=== PATIENT | male | born 1990 | race Hispanic/Latino ===

== ENCOUNTER 2016-12-26 05:24 | Emergency (ER) | payer SELFPAY ==
[2016-12-26 07:29] LABS: Alanine Aminotransferase 11 units/L (7-56); Albumin 3.9 g/dL (3.9-5); Albumin/Globulin Ratio 1.6 %; Alkaline Phosphatase 81 units/L (35-129); Anion Gap 18 mmol/L; Bilirubin,Total 0.5 mg/dL (0.1-1.2); Blood Urea Nitrogen 9 mg/dL (9-20); Calcium 8.2 mg/dL (8.4-10.2); Carbon Dioxide 24 mmol/L (22-30); Chloride 105.4 mmol/L (98-107); Glucose 102 mg/dL (75-100); Potassium 4.5 mmol/L (3.6-5.0); Sodium 143 mmol/L (137-145); Total Protein 6.3 g/dL (6.3-8.2)
[2016-12-26 07:42] LABS: Basophils % (Auto) 0.5 % (0.0-1.8); Eosinophils % (Auto) 0.2 % (0.0-4.3); Hematocrit 43.9 % (35.5-45.6); Hemoglobin 14.9 gm/dl (11.8-15.2); Mean Corpuscular HGB Conc 34 % (32-34); Mean Corpuscular Hemoglobin 34 pg (28-32); Mean Corpuscular Volume 99 fl (84-94); Platelet Count 174 K/mm3 (140-440); Red Blood Count 4.44 M/mm3 (3.65-5.03); Red Cell Distribution Width 12.3 % (13.2-15.2); White Blood Count 6.9 K/mm3 (4.5-11.0)
--- NOTE | 2016-12-26 08:13 | Emergency Department Report ---
ED Psych HPI - General Chief Complaint: Psych Stated Complaint: ALIYAH AZEVEDO Time Seen by Provider: 12/26/16 08:12 Source: police Mode of arrival: Ambulatory - History of Present Illness Initial Comments: Patient states that he lost control due to excessive alcohol and "problems with my shawty" or "more than one of them". It appears that the patient has had mental health issues for many years. He has had incarceration is in the past. He has been told that he should be taking medication but has never been either prescribed this or compliant with a prescription. He states he was not on medication in half-way. He denies any specific mental health history. He denies a history of methamphetamine or cocaine abuse. He did admit to marijuana use. He states that he was not trying to kill himself. He describes this behavior as impulsive. The lacerations are superficial. He has no ongoing suicidal ideation. The patient states his tetanus toxoid status is up-to-date. MD Complaint: other (states impulsive behavior) -: minutes(s) Associated Psychiatric Symptoms: none History of same: No Quality: resolved prior to arrival Improves With: none Worsens With: none Context: recent alcohol abuse Associated Symptoms: denies other symptoms Treatments Prior to Arrival: none If Self Harm: other - Related Data Home Medications Medication Instructions Recorded Confirmed Last Taken No Known Home Medications [No 12/26/16 12/26/16 Unknown Reported Home Medications] Allergies Allergy/AdvReac Type Severity Reaction Status Date / Time No Known Allergies Allergy Unverified 12/26/16 06:21 ED Review of Systems ROS: Stated complaint: ALIYAH EVAL Other details as noted in HPI Constitutional: denies: chills, fever Eyes: denies: eye pain, eye discharge, vision change ENT: denies: ear pain, throat pain Respiratory: denies: cough, shortness of breath, wheezing Cardiovascular: denies: chest pain, palpitations Endocrine: no symptoms reported Gastrointestinal: denies: abdominal pain, nausea, diarrhea Genitourinary: denies: urgency, dysuria Musculoskeletal: denies: back pain, joint swelling, arthralgia Skin: denies: rash, lesions Neurological: denies: headache, weakness, paresthesias Psychiatric: depression. denies: anxiety Hematological/Lymphatic: denies: easy bleeding, easy bruising ED Past Medical Hx - Past Medical History Previous Medical History?: No - Surgical History Past Surgical History?: No - Social History Smoking Status: Current Every Day Smoker Substance Use Type: Alcohol - Medications Home Medications: Home Medications Medication Instructions Recorded Confirmed Last Taken Type No Known Home Medications [No 12/26/16 12/26/16 Unknown History Reported Home Medications] ED Physical Exam - General Limitations: No Limitations General appearance: alert, in no apparent distress - Head Head exam: Present: atraumatic, normocephalic - Eye Eye exam: Present: normal appearance. Absent: scleral icterus - ENT ENT exam: Present: normal exam, mucous membranes moist - Neck Neck exam: Present: normal inspection - Respiratory Respiratory exam: Present: normal lung sounds bilaterally. Absent: respiratory distress - Cardiovascular Cardiovascular Exam: Present: regular rate, normal rhythm. Absent: systolic murmur, diastolic murmur, rubs, gallop - GI/Abdominal GI/Abdominal exam: Present: soft, normal bowel sounds. Absent: distended, tenderness, guarding, rebound, rigid - Rectal Rectal exam: Present: deferred - Extremities Exam Extremities exam: Present: normal inspection - Back Exam Back exam: Present: normal inspection - Neurological Exam Neurological exam: Present: alert, oriented X3, CN II-XII intact. Absent: motor sensory deficit - Psychiatric Psychiatric exam: Present: normal affect, normal mood - Skin Skin exam: Present: warm, dry, intact, normal color. Absent: rash ED Course Vital Signs 12/26/16 12/26/16 12/26/16 06:07 06:14 06:22 Temperature 97.9 F 97.9 F Pulse Rate 89 89 Respiratory 20 20 Rate Blood Pressure 111/62 Blood Pressure 111/62 [Right] O2 Sat by Pulse 97 97 97 Oximetry - Reevaluation(s) Reevaluation #1: Discussed with mental health counselor. We agreed that the patient's behavior appears to be more impulsive rather than a true suicidal gesture. We have executed a temporary 1013 pending evaluation with the psychiatrist when they make rounds this afternoon. The final disposition will be per psychiatry. 12/26/16 16:18 ED Medical Decision Making - Lab Data Result diagrams: 12/26/16 06:58 12/26/16 06:58 Laboratory Results - last 24 hr 12/26/16 12/26/16 12/26/16 06:58 06:58 06:58 WBC 6.9 RBC 4.44 Hgb 14.9 Hct 43.9 MCV 99 H MCH 34 H MCHC 34 RDW 12.3 L Plt Count 174 Lymph % (Auto) 42.3 H Tucker % (Auto) 6.8 Eos % (Auto) 0.2 Baso % (Auto) 0.5 Lymph # 2.9 Tucker # 0.5 Eos # 0.0 Baso # 0.0 Seg Neutrophils % 50.2 Seg Neutrophils # 3.5 Sodium 143 Potassium 4.5 Chloride 105.4 Carbon Dioxide 24 Anion Gap 18 BUN 9 Creatinine 0.9 Estimated GFR > 60 BUN/Creatinine Ratio 10.00 Glucose 102 H Calcium 8.2 L Total Bilirubin 0.5 AST 12 ALT 11 Alkaline Phosphatase 81 Total Protein 6.3 Albumin 3.9 Albumin/Globulin Ratio 1.6 Plasma/Serum Alcohol 0.21 H Laboratory Results - last 24 hr 12/26/16 12/26/16 12/26/16 06:58 06:58 06:58 WBC 6.9 RBC 4.44 Hgb 14.9 Hct 43.9 MCV 99 H MCH 34 H MCHC 34 RDW 12.3 L Plt Count 174 Lymph % (Auto) 42.3 H Tucker % (Auto) 6.8 Eos % (Auto) 0.2 Baso % (Auto) 0.5 Lymph # 2.9 Tucker # 0.5 Eos # 0.0 Baso # 0.0 Seg Neutrophils % 50.2 Seg Neutrophils # 3.5 Sodium 143 Potassium 4.5 Chloride 105.4 Carbon Dioxide 24 Anion Gap 18 BUN 9 Creatinine 0.9 Estimated GFR > 60 BUN/Creatinine Ratio 10.00 Glucose 102 H Calcium 8.2 L Total Bilirubin 0.5 AST 12 ALT 11 Alkaline Phosphatase 81 Total Protein 6.3 Albumin 3.9 Albumin/Globulin Ratio 1.6 Urine Color Urine Turbidity Urine pH Ur Specific Jennings Urine Protein Urine Glucose (UA) Urine Ketones Urine Blood Urine Nitrite Urine Bilirubin Urine Urobilinogen Ur Leukocyte Esterase Urine WBC (Auto) Urine RBC (Auto) Urine Mucus Plasma/Serum Alcohol 0.21 H 12/26/16 Unknown WBC RBC Hgb Hct MCV MCH MCHC RDW Plt Count Lymph % (Auto) Tucker % (Auto) Eos % (Auto) Baso % (Auto) Lymph # Tucker # Eos # Baso # Seg Neutrophils % Seg Neutrophils # Sodium Potassium Chloride Carbon Dioxide Anion Gap BUN Creatinine Estimated GFR BUN/Creatinine Ratio Glucose Calcium Total Bilirubin AST ALT Alkaline Phosphatase Total Protein Albumin Albumin/Globulin Ratio Urine Color Yellow Urine Turbidity Clear Urine pH 5.0 Ur Specific Jennings 1.024 Urine Protein <15 mg/dl Urine Glucose (UA) Neg Urine Ketones Neg Urine Blood Neg Urine Nitrite Neg Urine Bilirubin Neg Urine Urobilinogen 2.0 Ur Leukocyte Esterase Neg Urine WBC (Auto) 1.0 Urine RBC (Auto) 2.0 Urine Mucus Few Plasma/Serum Alcohol Laboratory Results - last 24 hr 12/26/16 12/26/16 12/26/16 06:58 06:58 06:58 WBC 6.9 RBC 4.44 Hgb 14.9 Hct 43.9 MCV 99 H MCH 34 H MCHC 34 RDW 12.3 L Plt Count 174 Lymph % (Auto) 42.3 H Tucker % (Auto) 6.8 Eos % (Auto) 0.2 Baso % (Auto) 0.5 Lymph # 2.9 Tucker # 0.5 Eos # 0.0 Baso # 0.0 Seg Neutrophils % 50.2 Seg Neutrophils # 3.5 Sodium 143 Potassium 4.5 Chloride 105.4 Carbon Dioxide 24 Anion Gap 18 BUN 9 Creatinine 0.9 Estimated GFR > 60 BUN/Creatinine Ratio 10.00 Glucose 102 H Calcium 8.2 L Total Bilirubin 0.5 AST 12 ALT 11 Alkaline Phosphatase 81 Total Protein 6.3 Albumin 3.9 Albumin/Globulin Ratio 1.6 Urine Color Urine Turbidity Urine pH Ur Specific Jennings Urine Protein Urine Glucose (UA) Urine Ketones Urine Blood Urine Nitrite Urine Bilirubin Urine Urobilinogen Ur Leukocyte Esterase Urine WBC (Auto) Urine RBC (Auto) Urine Mucus Urine Opiates Screen Urine Methadone Screen Ur Barbiturates Screen Ur Phencyclidine Scrn Ur Amphetamines Screen U Benzodiazepines Scrn Urine Cocaine Screen U Marijuana (THC) Screen Drugs of Abuse Note Plasma/Serum Alcohol 0.21 H 12/26/16 12/26/16 Unknown Unknown WBC RBC Hgb Hct MCV MCH MCHC RDW Plt Count Lymph % (Auto) Tucker % (Auto) Eos % (Auto) Baso % (Auto) Lymph # Tucker # Eos # Baso # Seg Neutrophils % Seg Neutrophils # Sodium Potassium Chloride Carbon Dioxide Anion Gap BUN Creatinine Estimated GFR BUN/Creatinine Ratio Glucose Calcium Total Bilirubin AST ALT Alkaline Phosphatase Total Protein Albumin Albumin/Globulin Ratio Urine Color Yellow Urine Turbidity Clear Urine pH 5.0 Ur Specific Jennings 1.024 Urine Protein <15 mg/dl Urine Glucose (UA) Neg Urine Ketones Neg Urine Blood Neg Urine Nitrite Neg Urine Bilirubin Neg Urine Urobilinogen 2.0 Ur Leukocyte Esterase Neg Urine WBC (Auto) 1.0 Urine RBC (Auto) 2.0 Urine Mucus Few Urine Opiates Screen Presumptive negative Urine Methadone Screen Presumptive negative Ur Barbiturates Screen Presumptive negative Ur Phencyclidine Scrn Presumptive negative Ur Amphetamines Screen Presumptive negative U Benzodiazepines Scrn Presumptive negative Urine Cocaine Screen Presumptive negative U Marijuana (THC) Screen Presumptive positive Drugs of Abuse Note Disclamer Plasma/Serum Alcohol Critical care attestation.: If time is entered above; I have spent that time in minutes in the direct care of this critically ill patient, excluding procedure time. ED Disposition Clinical Impression: History of impulsive behavior Alcohol intoxication Qualifiers: Complication of substance-induced condition: uncomplicated Qualified Code(s): F10.120 - Alcohol abuse with intoxication, uncomplicated Forehead abrasion Qualifiers: Encounter type: initial encounter Qualified Code(s): S00.81XA - Abrasion of other part of head, initial encounter Disposition: DISCHARGED TO HOME OR SELFCARE Is pt being admited?: No Does the pt Need Aspirin: No Condition: Stable Instructions: Abuse of Alcohol (ED), Abrasion (ED) Referrals: PRIMARY CARE, [Primary Care Provider] - 3-5 Days
[2016-12-26 08:32] LABS: Urine Drugs of Abuse Note Disclamer
[2016-12-26 08:50] LABS: Bilirubin,Urine NEG (Negative); Blood,Urine NEG (Negative); Ketones,Urine NEG (Negative); Leukocyte Esterase,Urine NEG (Negative); Mucus,Urine FEW /HPF; Nitrite,Urine NEG (Negative); Protein,Urine <15 mg/dL mg/dL (Negative)
--- NOTE | 2016-12-26 14:02 | Consultation ---
History of Present Illness - Reason for Consult Consult date: 12/26/16 Reason for consult: psychiatric evaluation - Chief Complaint Chief complaint: "I got drunk and was doing dumb stuff" Osmany is a 26-year-old white male who presented to the emergency department after harming himself while intoxicated. He reports drinking an excessive amount of alcohol, unknown amount, and cut his for head and his chest. He believes this event was triggered by an argument with his girlfriend. He denies previous depression or psychotic symptoms. He reports using marijuana "every once in a while." He denies use of methamphetamine, opiates, benzodiazepines, or any other drugs. He has a history of legal charges which are nonviolent. He states there schulz charges and also one for disorderly conduct. He reports many of these arrests occurred while he was under the influence of alcohol. He reports drinking socially and denies symptoms of withdrawal currently or previously. He reports drinking approximately every other day in the evening. He cannot specify an amount. He is currently employed at [employer]. He does not know family history because he was adopted. Medications and Allergies Allergies Allergy/AdvReac Type Severity Reaction Status Date / Time No Known Allergies Allergy Unverified 12/26/16 06:21 Home Medications Medication Instructions Recorded Confirmed Last Taken Type No Known Home Medications [No 12/26/16 12/26/16 Unknown History Reported Home Medications] Past psychiatric history - Past Medical History Past Medical History: No medical history Past Surgical History: No surgical history - past Psychiatric treatment and history psychiatric treatment history: No previous suicide attempts - Social History Social history: single (lives with girlfriend), smoking (1 pack per day), alcohol abuse, other (has 3 children. He is not the alf parent) Mental Status Exam - Vital signs Last Vital Signs Temp 97.9 F 12/26/16 06:14 Pulse 89 12/26/16 06:14 Resp 20 12/26/16 06:22 BP 111/62 12/26/16 06:14 Pulse Ox 97 12/26/16 06:22 - Exam Orientation: time, place, person Affect: normal Mood: other (irritable) Thought content: other (no SI or HI) Thought Process: Intact Perceptions: none Speech: normal rate and pattern Concentration: focused Motor activity: normal Level of consciousness: alert Memory: Intact Sleep Symptoms: None Interaction: cooperative Results Result Diagrams: 12/26/16 06:58 12/26/16 06:58 Abnormal lab results 12/26/16 12/26/16 12/26/16 Range/Units 06:58 06:58 06:58 MCV 99 H (84-94) fl MCH 34 H (28-32) pg RDW 12.3 L (13.2-15.2) % Lymph % (Auto) 42.3 H (13.4-35.0) % Glucose 102 H (75-100) mg/dL Calcium 8.2 L (8.4-10.2) mg/dL Plasma/Serum Alcohol 0.21 H (0-0.07) gm% All other labs normal. Assessment and Plan Assessment and plan: Impression: Alcohol use disorder, rule out dependence He likes insights into the frequency or severity of his use as well as its consequence. While he denies depression, there is concern that he harmed himself. Plan: Monitor for withdrawal from alcohol [facility] protocol, monitoring only 1013 and transfer to inpatient psychiatric facility - Psychiatric problem (1) Alcohol use disorder Current Visit: Yes Status: Acute
--- NOTE | 2016-12-27 11:14 | Progress Note ---
Subjective - Reason for Consult Consult date: 12/27/16 Reason for consult: Psychiatry Folllow-up - Chief Complaint Chief complaint: "I did a stupid thing" Osmany is a 26-year-old white male who presented to the emergency department after harming himself while intoxicated. He reports drinking an excessive amount of alcohol, unknown amount, and cut his for head and his chest. Today patient was calm and cooperative but fixed on being "stupid for I did." He does not seem to severity of his actions at this time, stating, "I just got into with my girl." He feels that his girlfriend was playing mind games with him, so he decided to cut himself to get her attention. He admits that he had been drinking before this occurrence. He stated, 'I don't have a drinking problem." He could not tell me how often he drinks. He denies needing a drink in the AM, denies feeling guilty about drinking, he does get annoyed when his girlfriend talk to him about excessive drinking ,and he denies that he may need to cut down on his drinking (CAGE 1). He is concern about his job ([employer]). He has a wound on his left FA from a burn (accidental at work), per the patient. He denies SI/HI's and AVH's. He denies recreational drug use but he is positive for marijuana. He denies feeling depressed or anxious. Mental Status Exam - Vital signs Last Vital Signs Temp 97.5 F L 12/27/16 10:45 Pulse 56 L 12/27/16 10:45 Resp 18 12/27/16 10:45 BP 121/76 12/27/16 10:45 Pulse Ox 98 12/27/16 10:45 - Exam Narrative exam: MSE: Appearance: cooperative Behavior: poor eye contact Speech: regular rate and tone Mood: "Just mad at the situation" Affect: flat Thought Process: organized and fixed Thought Content: denies SI/HI's and AVH's Cognition: A/O x4 Motor Activity: ambulatory Insight: poor Judgment: poor Assessment and Plan Impression: Alcohol use disorder. He likes insights into the frequency or severity of his use as well as its consequence. Osmany is a 26-year-old white male who presented to the emergency department after harming himself while intoxicated. He reports drinking an excessive amount of alcohol, unknown amount , and cut his for head and his chest. Today patient was calm and cooperative but fixed on being "stupid for I did." He does not seem to severity of his actions at this time, stating, "I just got into with my girl." He denies needing a drink in the AM, denies feeling guilty about drinking, he does get annoyed when his girlfriend talk to him about excessive drinking ,and he denies that he may need to cut down on his drinking (CAGE 1). He currently lives with the girlfriend, he states that his parents are . He denies recreational drug use but he is positive for marijuana. Alcohol 0.21. Recommendation/Plan: Continue 1013 with possible placement to inpatient psy services or outpatient for sunstance and alcohol abuse. Monitor for withdrawal from alcohol, none noted. Will reassess in the AM.
--- NOTE | 2016-12-28 12:20 | Progress Note ---
Subjective - Reason for Consult Consult date: 12/28/16 Reason for consult: psychiatric follow up - Chief Complaint Chief complaint: "I feel better" Osmany is a 26-year-old white male who presented to the emergency department after harming himself while intoxicated. He reports drinking an excessive amount of alcohol, unknown amount, and cut his for head and his chest. Patient has been calm and cooperative. He denies SI/HI/AVH. He discussed the negative consequences of his alcohol use. He is interested in outpatient programs to learn about alcoholism. He has the support of his girlfriend per his report. No signs of withdrawal observed or reported. He is concerned about his job ( [employer]). He has a wound on his left FA from a burn (accidental at work), per the patient. He denies feeling depressed or anxious. Mental Status Exam - Vital signs Last Vital Signs Temp 98.3 F 12/28/16 08:07 Pulse 63 12/28/16 08:07 Resp 16 12/28/16 08:07 BP 111/73 12/28/16 08:07 Pulse Ox 100 12/28/16 08:07 - Exam Orientation: time, place, person Affect: normal Mood: appropriate Thought content: other (no si/no hi) Thought Process: Intact Perceptions: none Speech: normal rate and pattern Concentration: focused Motor activity: normal Level of consciousness: alert Memory: Intact Sleep Symptoms: None Interaction: cooperative Assessment and Plan Impression: Alcohol use disorder. He likes insights into the frequency or severity of his use as well as its consequence. Osmany is a 26-year-old white male who presented to the emergency department after harming himself while intoxicated. He reports drinking an excessive amount of alcohol, unknown amount , and cut his for head and his chest. He denies recreational drug use (does not believe marijuana is a drug) but he is positive for marijuana. Alcohol 0.21 at time of admission to ER. Recommendation/Plan: Continue 1013 with possible placement to inpatient psy services or outpatient for substance and alcohol abuse. Monitor for withdrawal from alcohol, none noted. Will reassess in the AM. - Patient Problems (1) Alcohol use disorder Current Visit: Yes Status: Acute
[2016-12-29 09:13] VITALS: BP 111/69
--- NOTE | 2016-12-29 09:35 | Progress Note ---
Subjective - Reason for Consult Consult date: 12/29/16 Reason for consult: Psychiatry Follow-up - Chief Complaint Chief complaint: "I feel better" Osmany is a 26-year-old white male who presented to the emergency department after harming himself while intoxicated. He reports drinking an excessive amount of alcohol, unknown amount, and cut his for head and his chest. Patient has been calm and cooperative. Today patient is calm, cooperative with a linear thought process. He stated that he made a bad choice by being impulsive when he cut his forehead and chest. (superficial wounds). He denies SI/Hi's and AVH's. He denies feeling depressed or anxious. Mental Status Exam - Vital signs Last Vital Signs Temp 97.8 F 12/29/16 09:12 Pulse 67 12/29/16 09:12 Resp 16 12/29/16 09:12 BP 111/69 12/29/16 09:12 Pulse Ox 98 12/29/16 09:12 - Exam Narrative exam: MSE: Appearance: cooperative Behavior: good eye contact Speech: regular rate and tone Mood: "I'm good" Affect: euthymic Thought Process: linear, goal directed Thought Content: denies SI/HI's and AVH's Cognition: A/O x4 Motor Activity: ambulatory Insight: fair Judgment: fair Assessment and Plan Impression: Alcohol use disorder. He likes insights into the frequency or severity of his use as well as its consequence. Osmany is a 26-year-old white male who presented to the emergency department after harming himself while intoxicated. He reports drinking an excessive amount of alcohol, unknown amount , and cut his for head and his chest. Today patient is calm, cooperative with a linear thought process. He stated that he made a bad choice by being impulsive when he cut his forehead and chest. (superficial wounds). He denies SI/HI's and AVH's. He denies feeling depressed or anxious. I spoke with his girlfriend ( Gisell Laurent) and she is okay with the patient returning home. She stated that she would attend his session with him. Also, she stated this is his first time being impulsive and cutting on himself. Patient is not a threat to himself or anyone else. Recommendation/Plan: Rescind 1013. Outpatient psy services information given to patient (substance/alcohol/family therapy) for his local area. Safety Contract completed with patient.
--- NOTE | 2016-12-29 13:08 | Emergency Department Report ---
Blank Doc - Documentation Documentation: Patient has been reevaluated by psychiatry. [address] rescind[address] by Dr. Borges. Patient will be discharged home at this time with outpatient referral.
== END 2016-12-29 13:25 | disposition home or self-care (01) ==
LOC: EEVIPCON 05:24 → ED 05:24
DX: S00.81XA Abrasion of other part of head, initial encounter (principal); F10.120 Alcohol abuse with intoxication, uncomplicated; F17.200 Nicotine dependence, unspecified, uncomplicated; F12.90 Cannabis use, unspecified, uncomplicated; X58.XXXA Exposure to other specified factors, initial encounter; Y93.89 Activity, other specified; Y99.9 Unspecified external cause status; Y92.89 Other specified places as the place of occurrence of the external cause
CPT/HCPCS: 36415; 80053; 80307; 81001; 85025; 99284; G0480; 80320

== ENCOUNTER 2018-04-28 03:43 | Emergency (ER) | payer SELFPAY ==
[2018-04-28 03:55] VITALS: BP 112/69
[2018-04-28 04:27] LABS: Basophils % (Auto) 0.7 % (0.0-1.8); Eosinophils # (Auto) 0.1 K/mm3 (0.0-0.4); Eosinophils % (Auto) 0.9 % (0.0-4.3); Lymphocytes # (Auto) 3.4 K/mm3 (1.2-5.4); Mean Corpuscular HGB Conc 36 % (32-34); Mean Corpuscular Hemoglobin 34 pg (28-32); Mean Corpuscular Volume 95 fl (84-94); Monocytes # (Auto) 0.5 K/mm3 (0.0-0.8); Monocytes % (Auto) 6.5 % (0.0-7.3); Platelet Count 186 K/mm3 (140-440); Red Blood Count 4.53 M/mm3 (3.65-5.03); Red Cell Distribution Width 12.7 % (13.2-15.2)
[2018-04-28 04:30] LABS: Hematocrit 43.1 % (35.5-45.6); Hemoglobin 15.4 gm/dl (11.8-15.2)
[2018-04-28 04:31] LABS: Bilirubin,Urine NEG (Negative); Blood,Urine NEG (Negative); Color,Urine Yellow (Yellow); Mucus,Urine FEW /HPF; Protein,Urine <15 mg/dL mg/dL (Negative)
[2018-04-28 04:40] LABS: Amphetamine Screen,Urine PRESUMPTIVE NEGATIVE; Benzodiazepines Screen,Urine PRESUMPTIVE NEGATIVE; Cannabinoid Screen,Urine PRESUMPTIVE NEGATIVE; Cocaine Screen,Urine PRESUMPTIVE NEGATIVE; Methadone Screen,Urine PRESUMPTIVE NEGATIVE; Opiate Screen,Urine PRESUMPTIVE NEGATIVE
[2018-04-28 04:50] LABS: BUN/Creatinine Ratio 14; Blood Urea Nitrogen 10 mg/dL (9-20); Calcium 9.1 mg/dL (8.4-10.2); Hemolysis Index 28
== END 2018-04-28 09:37 | disposition left against medical advice (07) ==
LOC: ED 03:43
DX: S51.812A Laceration without foreign body of left forearm, initial encounter (principal); Z79.899 Other long term (current) drug therapy; Z53.21 Procedure and treatment not carried out due to patient leaving prior to being seen by health care provider; X58.XXXA Exposure to other specified factors, initial encounter; Y93.89 Activity, other specified; Y92.89 Other specified places as the place of occurrence of the external cause; Y99.8 Other external cause status
CPT/HCPCS: 36415; 80048; 80307; 81001; 85025; G0480; 80320